=== PATIENT | female | born 1990 | race Caucasian/White ===

== ENCOUNTER 2019-02-25 11:15 | Inpatient (IN) | payer OTHER ==
[2019-02-25] MEDS ORDERED: Lactated Ringers 1000 ML Bag* 1,000 ML IV ONE (12:48)
[2019-02-25] MEDS ORDERED: Misoprostol TAB* 100 MCG PO ONE ×2 (12:48→17:49)
[2019-02-25] MEDS ORDERED: Buffered Lidocaine 1% SYRIN* 1 ML/SYRINGE INTRADERM ONE (12:48)
[2019-02-25] MEDS ORDERED: Lactated Ringers 1000 ML Bag* 1,000 ML IV SCH (13:00)
--- NOTE | 2019-02-25 13:02 | HP ---
General Information - Reason for Visit [id number], Gestational hypertension, Induction of labor - General Information Maternal Age: 28 Grav: 2 Para: 1 SAB: 0 IEA: 0 Estimated Due Date: 03/09/19 Determined By: Early Ultrasound Maternal Blood Type and Rh: A Positive - Results this Serology/RPR Result: Non-Reactive Rubella Result: Immune HBsAg Result: Negative HIV Result: Negative GBS Culture Result: Negative Past Medical History Delivery History: Hx Uncomplicated Vaginal Delivery - benign heart murmur, R hydronephorsis in Pertinent Past Surgical History: None Pertinent Family History: See Records - hypertension, CVD, DM type II - Antepartal Records Antepartal Records: Reviewed, Complicated by: - echogenic foci ( Resolved), marginal previa (resolved), R hydronephosis, Gestational hypertension Review of Systems Constitutional: Comfortable CV Complaint: No Respiratory: Shortness of Breath: No Gastrointestinal: Nausea, Vomiting - yesterday Genitourinary: No Dysuria, No Bleeding, No Leaking Fluid Musculoskeletal: No Complaint, No Epigastric Pain Neurological: No Visual Changes, Headache Movement: Normal Exam Allergies/Adverse Reactions: Allergies No Known Allergies Allergy (Verified 02/25/19 11:32) T:97.8, P:63, R:18, BP: 126/74, O2:100 Lab Values - Entire Visit: CBC, CMP, 24hr urine 02/24/2019: WNL - Measurements Height: 5 ft 7 in Weight: 218 lb Weight in lbs: [phone] Body Mass Index (BMI): 34.1 Pre- Weight: 180 lb Weight Gained This : 38 lbs and 0 ozs - Exam Breast: Breast Exam Deferred CVA: No CVA Tenderness Extremities: No Edema Heart: Normal Rhythm/Heart Sounds HEENT: No Significant Findings Lungs: Clear Bilaterally Rectal: Rectal Exam Deferred Reflexes: DTR 2+ Thyroid: No Thyromegaly - Abdominal Exam Abdomen Exam: Fundal Height Consistent with Dates - Ultrasound/Biophysical Profile Ultrasound Status: Not Done Targeted Exam Findings Estimated Weight: 7lbs 10oz Cervical Exam: 2cm Effacement: 70% Station: -2 Presenting Part: Vertex Membrane Status: Intact Bleeding/Discharge: None EFM Findings - External Monitor Findings Baseline Heart Rate: 140 External Monitor Findings: Accelerations Present, No Pattern of Variable or Late Decelerations, Variability Moderate, Baseline Stable Contractions: None Assessment/Plan - Assessment 28 y.o. , 38w 2d EGA, induction of labor for gestational hypertension - Obstetrical Risk Factors Obstetrical Risk Factors: Gestational Hypertension - Plan Plan: Induction - Date/Time of Admission Date of Admission: 02/25/19 Time of Admission: 13:00
--- NOTE | 2019-02-25 17:55 | PN ---
Progress Note - Progress Note Date of Service: 02/25/19 SOAP: Subjective: [Pt reports mild cramping denies, LOF, VB or regular ctx. Pt denies ORDONEZ or epigastric pain.] Objective: [124/76, 134/80, P:68, R:18, T:98.3 FHT: 135bpm, + accels, -decels, moderate variability] Assessment: [28 y.o. , 38w2d EGA, IOL] Plan: [1) 25mcg misoprostol PO 2) Therapeutic rest overnight 3) Reevaluate in AM or sooner PRN]
[2019-02-25] MEDS ORDERED: Nalbuphine* 10 MG/ML 1 ML VIAL IM PRN (17:56)
[2019-02-25] MEDS ORDERED: Promethazine INJ(RESTRICTED)* 25 MG/ML 1 ML VIAL IM PRN (17:56)
--- NOTE | 2019-02-26 09:01 | PN ---
Progress Note - Progress Note Date of Service: 02/26/19 SOAP: Subjective: [Pt reports ctx overnight irregular. Pt has mild headache and nausea with vomiting. Pt denies vision changes. Reports +FM, + bloody show.] Objective: [FHR: 135bpm, + accels, occasional variables, moderate variability, ctx q 2- 15min. R:18, P:76, T:97.7 Cervix: 490/-1. AROM, clear. ] Assessment: [28 y.o. 38w3d EGA, gestational hypertension, induction of labor, Cat I NST ] Plan: [1) NST following AROM 2) Ambulation 3) Nitrous first choice by pt for pain control and counseled on risks/benefits and proper use. 4) Reevaluate in 2 hours or sooner PRN]
[2019-02-26] MEDS ORDERED: Lidocaine 2% VISCOUS* 15 ML UDC ONE (12:30)
[2019-02-26] MEDS ORDERED: Dibucaine 1% 28.35 GM TUBE PR PRN (13:48)
[2019-02-26] MEDS ORDERED: Glycerin ADULT SUPP PR PRN (13:48)
[2019-02-26] MEDS ORDERED: Misoprostol TAB* 200 MCG PR ONE (13:48)
[2019-02-26] MEDS ORDERED: Acetaminophen TAB* 325 MG PO PRN (13:48)
[2019-02-26] MEDS ORDERED: OXYTOCIN* 10 UNITS/ML 1 ML VIAL IM ONE (13:48)
[2019-02-26] MEDS ORDERED: Witch Hazel PAD* JAR TOPICAL PRN (13:48)
--- NOTE | 2019-02-26 13:48 | PROCNOTE ---
[facility] OB: Delivery Note - Delivery A Date of : 02/26/19 Time of : 13:33 Sex: Male Gestational Age in Weeks and Days at Delivery: 38 Weeks and 3 Days Delivery Method: Spontaneous Vaginal Labor: Induced Amniotic Fluid: Clear Estimated Blood Loss: 300 Anesthesia/Analgesia: None Delivered By: Jackelin Anna - Nursery Level of Nursery: Regular/Bedside - Perineum Perineal Injury: Abrasion Only - Not Repaired Perineal Repair: None - Events Delivery Events of Note: Pitocin Only After Delivery, Post- Bleeding - Meds Given Delivery Events of Note Comment: nuchal cord x 1
[2019-02-26] MEDS ORDERED: Lactated Ringers 1000 ML Bag* 1,000 ML IV SCH (14:00)
[2019-02-26] MEDS: Ibuprofen TAB* 600 MG PO PRN ×2 (16:10→22:08)
[2019-02-26] MEDS: Docusate CAP* 100 MG PO SCH ×2 (16:10→22:08)
[2019-02-26] MEDS ORDERED: Simethicone TAB* 80 MG TAB.CHEW PO SCH (17:30)
[2019-02-27] MEDS: Docusate CAP* 100 MG PO SCH ×2 (08:44→14:41)
[2019-02-27] MEDS: Ibuprofen TAB* 600 MG PO PRN ×2 (08:44→14:41)
[2019-02-27 08:57] LABS: ABS Basophils 0.1 10^3/ul (0-0.2); ABS Eosinophils 0 10^3/ul (0-0.6); ABS Lymphocytes 1.5 10^3/ul (1.0-4.8); ABS Monocytes 0.5 10^3/ul (0-0.8); ABS Neutrophils 9.8 10^3/ul (1.5-7.7); ABS Nucleated RBC 0 10^3/ul; Eosinophil % 0.3 %; Hematocrit 35 % (33-41); Lymphocyte % 12.3 %; Mean Corpuscular HGB Conc 35 g/dL (31-36); Mean Corpuscular Hemoglobin 31 pg (27-31); Mean Corpuscular Volume 90 fL (80-97); Mean Platelet Volume 7.6 fL (7.4-10.4); Nucleated Red Blood Cells % 0; Platelet Count 171 10^3/uL (150-450); Red Blood Count 3.81 10^6 /uL (3.70-4.87); Red Cell Distribution Width 13 % (10.5-15); White Blood Count 11.8 10^3/uL (3.5-10.8)
[2019-02-27] MEDS ORDERED: Ferrous Gluconate TAB* 324 MG TAB PO SCH (09:00)
[2019-02-27] MEDS ORDERED: Varicella Virus Vaccine Live* 0.5 ML VIAL SUBCUT ONE (09:23)
[2019-02-27 15:45] VITALS: BP 134/74
== END 2019-02-27 15:17 | disposition home or self-care (01) | DRG 560 ==
LOC: MCHOBOUT 11:15 → MCHOB 13:02
PROVIDERS: ADMIT Midwife; ATTEND Midwife
PROC: 10E0XZZ Delivery of Products of Conception, External Approach (ICD-10-PCS; principal; 2019-02-25)
PROC: 4A1HXCZ Monitoring of Products of Conception, Cardiac Rate, External Approach (ICD-10-PCS; 2019-02-25)
PROC: 3E033VJ Introduction of Other Hormone into Peripheral Vein, Percutaneous Approach (ICD-10-PCS; 2019-02-25)
PROC: 10907ZC Drainage of Amniotic Fluid, Therapeutic from Products of Conception, Via Natural or Artificial Opening (ICD-10-PCS; 2019-02-25)
DX: O13.4 Gestational [pregnancy-induced] hypertension without significant proteinuria, complicating childbirth (principal); Z37.0 Single live birth; O69.81X0 Labor and delivery complicated by cord around neck, without compression, not applicable or unspecified; Z3A.38 38 weeks gestation of pregnancy; O71.82 Other specified trauma to perineum and vulva; O72.1 Other immediate postpartum hemorrhage
CPT/HCPCS: 36415; 85025; A9270-GY; J2590; S0191